=== PATIENT | female | born 1940 | race Caucasian/White ===

== ENCOUNTER 2017-04-12 22:29 | Emergency (ER) | payer MEDICARE ==
[~2017-04-12] VITALS: Ht 162.6 cm; Wt 54.6 kg
[~2017-04-12 22:29] MED LIST: ASPI81TA82 PO; BLAC20TA PO; CALCCHW25 PO
[2017-04-12 22:31] VITALS: BP 159/73; PULSE 78; RESP 16; TEMP 97.2; O2SAT 99
[2017-04-12 23:02] LABS: BLOOD, URINE LARGE (NEG); GLUCOSE,URINE NEG (NEG); KETONE, URINE NEG (NEG); NITRITE,URINE NEG (NEG); PH, URINE 6.5 (5.0-8.5)
[2017-04-12 23:12] LABS: URINE COLOR RED (YELLW/STRAW)
[2017-04-12 23:13] LABS: COMMENT (UR) CULTURE INDICATED; CULTURE IF INDICATED CULTURE INDICATED; RBC, URINE INNUM /hpf (0-3); SQUAMOUS EPITHELIAL CELL URINE 0-5 /hpf (0-5)
[2017-04-12] MEDS ORDERED: ATOR10TA15 PO (23:23)
[2017-04-12] MEDS ORDERED: ASPI81CH CHEW (23:23)
[2017-04-12] MEDS ORDERED: CALCCHW25 CHEW (23:23)
[2017-04-12 23:25] VITALS: BP 159/73; PULSE 78; RESP 18; TEMP 97.2; O2SAT 99
[2017-04-12] MEDS ORDERED: PHEN0.4T PO (23:34)
[2017-04-12] MEDS ORDERED: MACR100C2 PO (23:34)
--- NOTE | 2017-04-12 23:35 | PD ---
HPI Chief Complaint: Complaint Time Seen by Provider: 23:30 Travel History International Travel<30 days: No Contact w/Intl Traveler<30days: No Traveled to known affect area: No History of Present Illness HPI 76-year-old female presents to the emergency department for complaint of one day of urinary frequency urgency dysuria and hematuria. Patient denies any discomfort at this time. Patient denies fever chills nausea vomiting or flank pain. No abdominal pain. Discomfort associated with urination 5/10 in intensity. Patient states symptoms began this evening. Patient is otherwise reportedly in good health is followed by her primary Dr. Rodriguez and is on medication for dyslipidemia. PFS Past Medical History Narrative Medical Dyslipidemia arthritis shingles; dental implant; no tobacco use; nursing notes reviewed Cancer: No Cardiovascular Problems: No Diabetes: No Endocrine: No Genitourinary: No Hepatitis: No Hiatal Hernia: No Immune Disorder: No Musculoskeletal: Yes (ARTHRITIS) Neurologic: No Psychiatric: No Reproductive: No Respiratory: No Thyroid Disease: No ?: Not LMP: MENOPAUSAL Past Surgical History AICD: No Body Medical Devices: N/A Cardiac Surgery: No Ear Surgery: No Endocrine Surgery: No Eye Surgery: No Genitourinary Surgery: No Gynecologic Surgery: Yes (D&C X 2) Joint Replacement: No Oral Surgery: Yes (CROWNS, IMPLANTS) Pacemaker: No Thoracic Surgery: No Social History Tobacco Use: No Substance Use: No Allergies-Medications (Allergen,Severity, Reaction): Coded Allergies: penicillin G (Unverified Allergy, Severe, EDEMA, 04/12/17) Reported Meds & Prescriptions Reported Meds & Active Scripts Active Pyridium (Phenazopyridine HCl) 100 Mg Tab 100 Mg PO Q8H PRN Macrobid (Nitrofurantoin Monohydrate Macrocrystals) 100 Mg Capsule 100 Mg PO BID 10 Days Reported Calcium + D & K (Calcium-Vitamins D & K) 500-1,000-40 Mg-Unit-Mcg Chew 1 Tab CHEW Atorvastatin (Atorvastatin Calcium) 10 Mg Tab 10 Mg PO HS Aspirin 81 Mg Chew 81 Mg CHEW DAILY Review of Systems Except as stated in HPI: all other systems reviewed are Neg Physical Exam Narrative GENERAL: Well-developed well-nourished female in no acute distress no respiratory distress SKIN: Warm and dry. HEAD: Normocephalic. EYES: No scleral icterus. No injection or drainage. NECK: Supple, trachea midline. No JVD or lymphadenopathy. CARDIOVASCULAR: Regular rate and rhythm without murmurs, gallops, or rubs. RESPIRATORY: Breath sounds equal bilaterally. No accessory muscle use. GASTROINTESTINAL: Abdomen soft, non-tender, nondistended. MUSCULOSKELETAL: No cyanosis, or edema. BACK: Nontender without obvious deformity. No CVA tenderness. Data Data Last Documented VS Vital Signs Date Time Temp Pulse Resp B/P (MAP) Pulse Ox O2 Delivery O2 Flow Rate FiO2 04/13/17 00:07 85 18 161/78 (105) 100 04/12/17 23:25 97.2 Orders Orders Urinalysis - C+S If Indicated (04/12/17 22:38) Urine Culture (04/12/17 22:40) Nitrofurantoin Monohyd Macrocr (Macrobid (04/12/17 23:45) Phenazopyridine (Pyridium) (04/12/17 23:45) Labs Laboratory Tests Test 04/12/17 22:40 Urine Color RED Urine Turbidity CLOUDY Urine pH 6.5 Urine Specific [place] 1.020 Urine Protein 100 mg/dL Urine Glucose (UA) NEG mg/dL Urine Ketones NEG mg/dL Urine Occult Blood LARGE Urine Nitrite NEG Urine Bilirubin NEG Urine Leukocyte Esterase SMALL Urine RBC INNUM /hpf Urine WBC 20-24 /hpf Urine Squamous Epithelial Cells 0-5 /hpf Microscopic Urinalysis Comment CULTURE INDICATED MDM Medical Decision Making Medical Screen Exam Complete: Yes Emergency Medical Condition: Yes Medical Record Reviewed: Yes Interpretation(s) Urinalysis positive white blood cells red blood cells culture indicated Differential Diagnosis Dysuria, UTI, hemorrhagic cystitis, renal colic Narrative Course 76-year-old female with urinary frequency urgency dysuria and hematuria presents for evaluation; urinalysis is consistent white blood cells and rbc's abdomen is soft nontender without flank tenderness vital signs are in normal range except for elevated blood pressure and initially noted to have mildly decreased temperature however patient identified to have dialysis and given first dose of oral antibiotic along with Pyridium. Patient is clinically stable at this time for outpatient culture is pending and patient is encouraged to follow-up with her primary care provider regarding" for cystitis/hemorrhagic cystitis" Diagnosis Primary Impression: Acute cystitis Referrals: Primary Care Physician 1 day Phone office in a.m. to schedule follow-up appointment with your primary care provider Patient Instructions: General Instructions Additional Instructions: Increase fluid hydration Take medication as prescribed Take acetaminophen/Tylenol every 4 hours as needed for minor pain over fever 100.4F or greater May use ibuprofen/Advil/Motrin 600 mg as often as every 6 - 8 hours as needed for fever 100.4F or greater or for pain associated with inflammation Return to the emergency department for fever pain vomiting or any concerns Follow-up with primary care provider call office in a.m. to schedule follow-up appointment Med/Other Pt SpecificInfo: Prescription(s) given Scripts Phenazopyridine (Pyridium) 100 Mg Tab 100 MG PO Q8H Y for DYSURIA, #6 TAB 0 Refills Prov: Jannette Marmolejo MD 04/12/17 Nitrofurantoin Monohydrate Macrocrystals (Macrobid) 100 Mg Capsule 100 MG PO BID for Infection for 10 Days, CAP 0 Refills Prov: Jannette Marmolejo MD 04/12/17 Disposition: 01 DISCHARGE HOME Condition: Stable Jannette Marmolejo MD Apr 12, 2017 23:35
[2017-04-12] MEDS ORDERED: PHENAZOPYRIDINE HCL 100 MG TAB PO ONE (23:45)
[2017-04-12] MEDS ORDERED: NITROFURANTOIN MONOHYD MACROCR 100 MG CAP PO ONE (23:45)
[2017-04-13 00:07] VITALS: BP 161/78
== END 2017-04-13 00:09 | disposition home or self-care (01) ==
LOC: PHED 22:29
DX: N30.00 Acute cystitis without hematuria (principal); E78.5 Hyperlipidemia, unspecified; M19.90 Unspecified osteoarthritis, unspecified site; Z88.0 Allergy status to penicillin; B96.20 Unspecified Escherichia coli [E. coli] as the cause of diseases classified elsewhere
CPT/HCPCS: 81001; 87077; 87086; 87186; 99283

== ENCOUNTER → 2017-07-09 | Outpatient (CLI) | payer MEDICARE ==
[~2017-07-09] MED LIST changes: +ASPI-516 CHEW; -ASPI81TA82 PO; +ATOR10TA15 PO; -BLAC20TA PO; +CALCCHW25 CHEW; -CALCCHW25 PO; +CALCTAB80 PO; +MACR100C2 PO; +PHEN0.4T PO
--- NOTE | 2017-07-09 16:18 | EKG ---
Date Performed: 07/09/2017 Time Performed: 11:52:38 PTAGE: 77 years EKG: SINUS BRADYCARDIA Compared to prior tracing no significant change BORDERLINE ECG PREVIOUS TRACING : 10/06/2013 10.21 DOCTOR: Marcus Llamas Interpretating Date/Time 07/09/2017 16:16:06
== END ==
LOC: PHPRE 11:04
PROVIDERS: ATTEND Ophthalmology
DX: Z01.810 Encounter for preprocedural cardiovascular examination (principal); I10 Essential (primary) hypertension; R94.31 Abnormal electrocardiogram [ECG] [EKG]
CPT/HCPCS: 93005

== ENCOUNTER → 2017-09-03 | Day surgery (SDC) | payer MEDICARE ==
--- NOTE | 2017-08-08 13:21 | MH ---
cc: CONSUELO MCCOY M.D. DATE OF ADMISSION: 08/27/2017 ADMISSION DIAGNOSIS Cataract, left eye. HISTORY OF PRESENT ILLNESS This 77-year-old white female is coming through [facility] for the purpose of a lens extraction of the left eye with intraocular lens implant under local anesthesia. She has noted decreasing visual acuity interfering with her daily activities and elected to have the above procedure. She had similar procedure in October of 2013 in the right eye and did well postoperatively and now has elected to have a cataract procedure on her left eye. Her best corrected visual acuity is 20/20 -2 in the right eye and 20/40 -2 in the left. PAST MEDICAL HISTORY The patient has a history of: 1. Cholesterol problems. 2. Hypertension which is diet controlled. 3. Osteopenia. PAST SURGICAL HISTORY The surgical history includes: 1. D&C. 2. The above-mentioned cataract surgery in the right eye in 2013. MEDICATIONS Daily medications include: 1. Atorvastatin. 2. Calcium. 3. Baby aspirin 81 mg. ALLERGIES She is allergic to PENICILLIN. SOCIAL HISTORY The patient does not smoke and has a glass of wine daily. FAMILY HISTORY Positive for a brother with cataract and brother with diabetic retinopathy. REVIEW OF SYSTEMS HEAD: Patient denies severe headaches, dizziness or recent head injury. EARS: Patient denies hearing loss, ear pain, discharge or ringing in the ears. NOSE: Patient denies nasal discharge. The patient has some nasal obstruction in the form of a deviated septum. No frequent colds. MOUTH AND THROAT: Patient denies soreness of the mouth or tongue, bleeding gums, trouble swallowing, changes in voice or sore throat. NECK: Patient denies neck pain or swelling, limitation of neck movement or neck injury. CARDIOPULMONARY SYSTEM: Patient denies shortness of breath, orthopnea, chronic cough, sputum production, hemoptysis, chest pain, wheezing, or light-headedness. The patient has heart palpitations occasionally. GI SYSTEM: Patient denies poor appetite, nausea, vomiting, abdominal pain, ulcers or change in bowel habits. The patient has hemorrhoids. SYSTEM: The patient denies urinary frequency, dysuria, change in urine color. NERVOUS SYSTEM: Patient denies convulsions, vertigo, stroke, numbness or weakness. PHYSICAL EXAMINATION VITAL SIGNS: Blood pressure is 122/78, pulse 76, respirations 16. HEAD: Normocephalic, atraumatic. NOSE: Without rhinorrhea. THROAT: Clear. NECK: Supple. CHEST: Clear. HEART: Regular rhythm. ABDOMEN: Without tenderness. EXTREMITIES: Without edema. NEUROLOGIC: Within normal limits. MENTAL STATUS: Within normal limits. EYE EXAMINATION: The patient's best corrected visual acuity is 20/20 -2 in the right eye and 20/40 -2 in the left. Visual quesada are full to confrontation testing. Extraocular muscle exam reveals full versions with orthophoria in the distance and exophoria at near. Pupils are 3 mm equal, round, and reactive to light without afferent defect. Anterior segment examination reveals dermatochalasis of the eyelid skin. A posterior chamber intraocular lens is in place in the right eye. There are nuclear sclerotic, cortical and early posterior subcapsular cataract changes in the left eye. Intraocular pressure is 17 in the right eye and 19 in the left by applanation tonometry. Dilated fundus exam revealed sharp disks with cup-to-disk ratio 0.3 bilaterally. The macula is clear bilaterally. A posterior vitreous detachment is present bilaterally. There are choroidal nevi in the right eye at the end of the superotemporal arcade and inferotemporal arcade. IMPRESSION 1. Cataract, left eye. 2. Pseudophakia, right eye. 3. Posterior vitreous detachment, both eyes. 4. Choroidal nevi, right eye. PLAN Lens extraction of the left eye with intraocular lens implant under local anesthesia through [facility]. The patient has been cleared medically. She has been counseled as to the risks, benefits and alternatives and elected to proceed. I feel that cataract surgery will improve the quality of life and activities of daily living in this patient. MD NELLIE Bonilla/ROSEMARY /12:45 PM /1:02 PM
[~2017-09-03] VITALS: Ht 162.6 cm; Wt 52.0 kg
[~2017-09-03] MED LIST changes: +ACETYLCHOLINE CHL OPHT SOLN 1:100 2 ML VIAL ONE; +AMLO5TAB2 PO; -CALCCHW25 CHEW; +CHLORHEXIDINE GLUCONATE 2 % 1 PACK (2 CLOTHS) TOPICAL PRN; +EPINEPHrine HCL PF/SF (1:1000) 1 MG/ML AMP I-OCULAR ONE; +HYALURONIDASE/LIDOCAINE/BUPIVACAINE 5 ML SYR LEFT EYE ONE; +HYALURONIDASE/LIDOCAINE/BUPIVACAINE 5 ML SYR LEFT EYE PRN; +INSULIN HUMAN REGULAR 1,000 UNITS/10 ML VIAL SQ PRN; +LACTATED RINGER'S 1000 ML IV PRN; -MACR100C2 PO; +METOPROLOL TARTRATE 25 MG TAB PO PRN; -PHEN0.4T PO; +PILOCARPINE HCL 2% OPHT SOLN 15 ML BTL ONE; +POVIDONE IODINE 5% (ANTISEPSIS KIT) 4 APPLICATIONS EACH NARE PRN; +PROPARACAINE HCL 0.5% OPHT SOLN 15 ML BTL LEFT EYE ONE; +PROPOFOL 200 MG/20 ML AMP ONE; +SODIUM CHLORID 0.9% 500 ML IV PRN; +TETRACAINE 0.5% OPTH SOLN 4 ML BTL ONE; +TOBRAMYCIN/DEXAMETHASONE OPTH OINT 3.5 GM TUBE ONE; +VISCOAT OPHT IRRIG SOLN 0.75 ML SYRINGE ONE
[2017-09-03 09:15] VITALS: PULSE 68
[2017-09-03] MEDS: TROPICAMIDE 1% OPHT SOLN 15 ML BTL LEFT EYE SCH ×4 (09:23→09:31)
[2017-09-03] MEDS: DICLOFENAC SOD 0.1% OPHT SOLN 2.5 ML BTL LEFT EYE SCH ×4 (09:23→09:31)
[2017-09-03] MEDS: GATIFLOXACIN 0.5% OPHT SOLN 2.5 ML BTL LEFT EYE SCH ×4 (09:23→09:31)
[2017-09-03] MEDS: PHENYLEPHRINE HCL 2.5% OPTH SOLN 2 ML BTL LEFT EYE SCH ×4 (09:23→09:31)
[2017-09-03] MEDS: CYCLOPENTOLATE HCL 1% OPHT SOLN 2 ML BTL LEFT EYE SCH ×4 (09:23→09:31)
[2017-09-03 10:15] VITALS: PULSE 68
[2017-09-03 12:02] VITALS: TEMP 96.8
[2017-09-03 12:23] VITALS: BP 135/82; PULSE 85; RESP 14; O2SAT 100
--- NOTE | 2017-09-03 12:53 | MP ---
cc: CONSUELO WINSTON DATE OF SURGERY September 03, 2017 PREOPERATIVE DIAGNOSIS: Cataract left eye. POSTOPERATIVE DIAGNOSIS: Cataract left eye. OPERATION: Extracapsular cataract extraction with posterior chamber intraocular lens implant by phacoemulsification, left eye. SURGEON: Consuelo Winston M.D. ANESTHESIA: Local. COMPLICATIONS: None. INDICATIONS: See history and physical previously dictated. OPERATIVE PROCEDURE: The patient had adequate retrobulbar and eyelid blocks administered in the holding area and was brought to the operating room. The left eye was prepped and draped in the usual sterile ophthalmic manner. A lid speculum was inserted in the left eye. A 4-0 silk bridle suture was placed through the conjunctiva near the superior rectus muscle and it was tagged to the drape. A fornix-based conjunctival flap was prepared spanning approximately 5 mm in width. Hemostasis was obtained with wet-field cautery. A 3.5 mm groove was made 1 mm from the limbus and dissected up to the limbus in the form of a scleral pocket incision. A stab incision was then made at the 2 o'clock position. Viscoelastic was injected into the anterior chamber. The anterior chamber was entered with a 2.75 mm keratome through the scleral pocket incision. A 360 degree continuous curvilinear capsulorrhexis was then performed. Hydrodissection was utilized to divide the nucleus into inner and outer components and to separate the cortex from the capsule. Phacoemulsification was then utilized to remove the nucleus. The outer nuclear layer was removed with irrigation and aspiration and short bursts of ultrasound as necessary. The cortex was removed with the irrigation/aspiration handpiece. The posterior capsule was polished with the capsule polisher. Viscoelastic was injected into the capsular bag. The intraocular lens was inspected and found to be in good condition. The lens utilized was an Davey, model number [id number] with a power of +17.5 diopters. The lens was inserted into the capsular bag. The viscoelastic in the anterior chamber was then removed with the irrigation-aspiration handpiece. Viscoelastic was also removed from beneath the intraocular lens. The anterior chamber was filled with Miochol-E through the stab incision and pressurized. The wound was checked for leaks at this pressure and normalized pressure and there were none. The 4-0 bridle suture was removed. The conjunctival flap was brought down over the wound and secured with cautery. Pilocarpine 2% eye drops were instilled topically. The lid speculum was removed. TobraDex ophthalmic ointment was applied. The eye was double patched and shielded. The patient tolerated the procedure well and left the Operating Room in satisfactory condition. MD NELLIE Bonilla/REX /11:58 AM /12:45 PM
== END | disposition home or self-care (01) ==
LOC: PHSDC 08:49
PROVIDERS: ATTEND Ophthalmology
DX: H25.812 Combined forms of age-related cataract, left eye (principal); H43.813 Vitreous degeneration, bilateral; I10 Essential (primary) hypertension; M85.80 Other specified disorders of bone density and structure, unspecified site; Z96.1 Presence of intraocular lens
CPT/HCPCS: 00142; 66984; J0171; J7040; V2632

== ENCOUNTER 2018-03-12 10:03 | Observation (INO) ==
[2018-03-12] MEDS ORDERED: Chlorhexidine Gluconate 2% 1 Pack (2 Cloths) TOPICAL SCH (10:30)
[2018-03-12] MEDS ORDERED: Metoprolol Tartrate 25 MG Tablet PO SCH (10:30)
[2018-03-12] MEDS ORDERED: Sodium Chlor 0.9% Inj 500 ML IV.SIG SCH (11:00)
[2018-03-12] MEDS ORDERED: fentaNYL Citrate Inj 100 MCG/2 ML Ampul ONE (12:43)
--- NOTE | 2018-03-12 12:58 | MP ---
cc: Brian Bueno MD DATE OF OPERATION: 03/12/2018 PREOPERATIVE DIAGNOSES: 1. Postmenopausal bleeding. 2. Fluid in the endometrium. 3. Cervical stenosis, unable to get a biopsy in the office. POSTOPERATIVE DIAGNOSES: 1. Postmenopausal bleeding. 2. Fluid in the endometrium. 3. Cervical stenosis, unable to get a biopsy in the office. PROCEDURE PERFORMED: Examination under anesthesia and attempted hysteroscopy. ANESTHESIA: General. SURGEON: Brian Bueno MD FINDINGS AND PROCEDURE: On examination under anesthesia, the vagina was small and atrophic without any discrete lesions. The cervix was small and the os is very difficult to see. The uterus was normal size, shape and consistency, small and mobile. The adnexa was negative for masses. The cervical stenosis we attempted for quite some time to pass the silver wire. This was unsuccessful. We tried with the smallest dilator possible felt, like I might have gotten in. Once we dilated her up to a Sinhala 15, we inserted the hysteroscope and realized we were in the peritoneal cavity. We slowly removed the hysteroscope. There was no bleeding or evidence of injury to any organs. At this point, we terminated the procedure and will take her to the recovery room in good condition. We will keep her for overnight or at least until this afternoon to make sure there are no complications from this. We will also give her some antibiotics. Brian Bueno MD RJV/KD , 12:43 PM , 12:58 PM
[2018-03-12] MEDS ORDERED: Ibuprofen 400 MG Tablet PO PRN (13:26)
[2018-03-12] MEDS ORDERED: Clindamycin 600 mg/NS Premix 600 MG/50 ML PIGGYBACK IV.SIG ONE (13:30)
[2018-03-12] MEDS ORDERED: Ketorolac Inj 30 MG/ML (IVP) Vial IV.PUSH ONE (19:09)
[2018-03-12] MEDS ORDERED: Neostigmine Inj 5 MG/5 ML Syringe IV.PUSH ONE (19:09)
== END 2018-03-12 19:10 | disposition home or self-care (01) ==
LOC: H1EA 10:03 → HSDC 10:03 → H1EA 13:57
PROVIDERS: ADMIT Obstetrics & Gynecology; ATTEND Obstetrics & Gynecology